=== PATIENT | male | born 1940 | race Caucasian/White ===

== ENCOUNTER 2018-10-07 14:20 | Inpatient (IN) | payer MEDICARE, OTHER ==
[~2018-10-07] VITALS: Ht 175.3 cm; Wt 83.9 kg
--- NOTE | 2018-10-07 14:40 | NUR ---
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 RECEIVED PT DIRECT ADMIT @ 1440 A/OX4, NO SOB OR ACUTE DISTRESS NOTED. 3L O2 VIA NC SPO2 94%. TELE ATTACHED, SINUS RHYTHM HR 71. 1+ EDEMA AND DRY SKIN ON BLE. WOUND CONSULT ORDERED, PICTURES TAKEN. PT. REPORTS BEING ABLE TO WALK "FOR A SHORT AMOUNT OF TIME". URINAL AT BEDSIDE. COMPLAINS OF 9/10 BACK PAIN. NORCO GIVEN. TWO LEFT FA IVs 18G AND 20G. ORDERS RECEIVED AND CARRIED OUT. ALL BELONGINGS ACCOUNTED FOR. BED LOCKED, LOW, SIDE RAILS UP X2, CALL LIGHT WITHIN REACH. PT. ABLE TO MAKE NEEDS KNOWN. WILL CONTINUE TO MONITOR AND ENDORSE TO NOC
[2018-10-07] MEDS ORDERED: LACT1CAP89 PO (14:44)
[2018-10-07] MEDS ORDERED: HYDR-4209 PO (14:44)
[2018-10-07 14:45] VITALS: BP 122/92
[2018-10-07] MEDS ORDERED: DOCU-141 PO (14:53)
[2018-10-07] MEDS ORDERED: GUAI-755 PO (14:53)
[2018-10-07] MEDS ORDERED: ALBU2.5V38 IH (14:53)
[2018-10-07] MEDS ORDERED: BUDE10.22 IH (14:53)
[2018-10-07] MEDS ORDERED: AMLO10TA7 PO (14:53)
[2018-10-07] MEDS ORDERED: TIOT18CA3 IH (14:53)
[2018-10-07] MEDS ORDERED: THIA100V2 PO (14:53)
[2018-10-07] MEDS ORDERED: MULT-213 PO (14:53)
[2018-10-07] MEDS ORDERED: ACET-73 PO (14:53)
[2018-10-07 16:00] VITALS: BP 125/69
[2018-10-07] MEDS ORDERED: IPRATROPIUM NEB FS 0.5 MG/2.5 ML AMPUL.NEB NEB PRN (16:00)
[2018-10-07] MEDS ORDERED: MAGNESIUM HYDROXIDE 30 ML UDC PO PRN (16:00)
[2018-10-07] MEDS ORDERED: ZOLPIDEM TARTRATE 5 MG TABLET PO PRN (16:00)
[2018-10-07] MEDS ORDERED: MAG HYDROX/AL HYDROX/SIMETH 30 ML UDC PO PRN (16:00)
[2018-10-07] MEDS ORDERED: ACETAMINOPHEN 325 MG TABLET PO PRN (16:00)
[2018-10-07] MEDS ORDERED: ONDANSETRON HCL/PF 4 MG/2 ML VIAL IVP PRN (16:00)
[2018-10-07] MEDS ORDERED: ALBUTEROL FS 2.5 MG/0.5 ML VIAL.NEB NEB PRN (16:00)
[2018-10-07] MEDS ORDERED: Z GUARD REMEDY 2 OZ OINT TP PRN (16:00)
[2018-10-07] MEDS: HYDROCODONE/APAP 5/325MG 1 EACH TABLET PO PRN (16:28)
[2018-10-07] MEDS: LEVOFLOXACIN 750 MG /D5W 150ML 750 MG in PREMIX 1 EA IV SCH (17:09)
[2018-10-07] MEDS: DOCUSATE SODIUM 100 MG CAPSULE PO SCH (17:11)
[2018-10-07] MEDS: GUAIFENESIN LA 600 MG TABLET.SA PO SCH (17:11)
[2018-10-07] MEDS: methylPREDNISolone SOD SUCC 40 MG/ML VIAL IV SCH ×2 (18:20→23:35)
--- NOTE | 2018-10-07 19:05 | NUR ---
MS/RN INITIAL NOTES RECEIVED PT IN BED, A/OX3. ON 3L O2 VIA NC, NO SOB NOTED. LFA G20 AND LFA G18 HEPLOCK PATENT, C/D/I. NO C/O PAIN AT THIS TIME.SAFETY MEASURES IN PLACED. CALL LIGHT WITHIN EASY REACH. WILL CONT TO MONITOR
--- NOTE | 2018-10-07 19:27 | NUR ---
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 PT. STABLE CONDITION WITH 3L O2 NC.
[2018-10-07 20:00] VITALS: BP 127/68
[2018-10-08 04:00] VITALS: BP 130/59
[2018-10-08] MEDS: methylPREDNISolone SOD SUCC 40 MG/ML VIAL IV SCH ×3 (05:20→17:35)
[2018-10-08 06:27] LABS: BASOPHILS % (AUTO) 0.1 % (0.0-2.0); HEMATOCRIT 35 % (39-51); HEMOGLOBIN 11.4 g/dL (13.5-17.5); LYMPHOCYTES # (AUTO) 0.7 /CMM (0.8-4.8); LYMPHOCYTES % (AUTO) 7.6 % (20.0-44.0); MEAN CORPUSCULAR HGB CONC 33 g/dl (31.0-36.0); MEAN CORPUSCULAR VOLUME 87 fL (80-96); MONOCYTES # (AUTO) 0.1 /CMM (0.1-1.30); MONOCYTES % (AUTO) 1.3 % (2.0-12.0); NEUTROPHILS # (AUTO) 8.9 /CMM (1.8-8.9); PLATELET COUNT (AUTO) 298 /CMM (150-450); RED BLOOD CELL COUNT(AUTO) 3.97 MIL/uL (4.5-6.0); WHITE BLOOD COUNT (AUTO) 9.8 K/uL (4.3-11.0)
--- NOTE | 2018-10-08 06:43 | NUR ---
RN NOTES PT IN STABLE CONDITION. NO ACUTE CHANGES THROUGHOUT SHIFT. ALL NEEDS ANTICIPATED. SAFETY MEASURES OBSERVED AT ALL TIMES. ENDORSED TO AM SHIFT RN FOR [place]
[2018-10-08 06:59] LABS: CALCIUM, SERUM 9.3 mg/dL (8.5-10.1); CARBON DIOXIDE 31 mmol/L (21-32); CHLORIDE 99 mmol/L (98-107); CREATININE 0.6 mg/dL (0.6-1.3); GLUCOSE 150 mg/dL (74-106); PHOSPHORUS 3.4 mg/dL (2.5-4.9); POTASSIUM 4.6 mmol/L (3.5-5.1); SODIUM SERUM 138 mmol/L (136-145); UREA NITROGEN, BLOOD 16 mg/dL (7-18)
[2018-10-08 07:11] LABS: CHOLESTEROL 201 mg/dL (<200); HDL CHOLESTEROL 62 mg/dL (40-60); LDL 125 mg/dL (0-99); TRIGLYCERIDES 34 mg/dL (30-150)
[2018-10-08 08:00] VITALS: BP_SYST 129; BP_DIAS 64; BP_DIAS 76
[2018-10-08] MEDS: GUAIFENESIN LA 600 MG TABLET.SA PO SCH ×2 (08:28→21:29)
[2018-10-08] MEDS: AMLODIPINE BESYLATE 10 MG TABLET PO SCH (08:28)
[2018-10-08] MEDS: DOCUSATE SODIUM 100 MG CAPSULE PO SCH ×2 (08:29→16:18)
[2018-10-08] MEDS: HYDROCODONE/APAP 5/325MG 1 EACH TABLET PO PRN ×3 (08:31→21:30)
[2018-10-08] MEDS: ALBUTEROL FS 2.5 MG/0.5 ML VIAL.NEB NEB SCH ×2 (15:20→19:09)
[2018-10-08] MEDS: IPRATROPIUM NEB FS 0.5 MG/2.5 ML AMPUL.NEB NEB SCH ×2 (15:20→19:09)
[2018-10-08 16:00] VITALS: BP 135/77
[2018-10-08] MEDS: LEVOFLOXACIN 750 MG /D5W 150ML 750 MG in PREMIX 1 EA IV SCH (16:18)
--- NOTE | 2018-10-08 20:00 | NUR ---
MS RN NOTE PT IN BED AWAKE. A/O X 4, NO SOB NO DISTRESS OR DISCOMFORT NOTED. DENIES PAIN. GETTING B TX PER RT. LFA # 20 G AND LFA #18 G SL INTACT AND PATENT. SIDE RAILS UP X 2 AND CALL LIGHT WITHIN REACH. VSS. CONTINUE TO MONITOR HIM.
--- NOTE | 2018-10-08 21:30 | NUR ---
MS RN NOTE PT C/O LOWER BACK PAIN 11/11. NORCO 1 TAB PO GIVEN. CONTINUE TO MONITOR HIM.
--- NOTE | 2018-10-08 22:30 | NUR ---
MS RN NOTE PAIN SUBSDIED 2/10. CONTINUE TO MONITOR HIM.
[2018-10-09] MEDS: methylPREDNISolone SOD SUCC 40 MG/ML VIAL IV SCH ×5 (00:17→23:31)
[2018-10-09] MEDS: ALBUTEROL FS 2.5 MG/0.5 ML VIAL.NEB NEB SCH ×4 (01:30→19:22)
[2018-10-09] MEDS: IPRATROPIUM NEB FS 0.5 MG/2.5 ML AMPUL.NEB NEB SCH ×4 (01:30→19:22)
[2018-10-09 04:00] VITALS: BP 134/61
--- NOTE | 2018-10-09 06:24 | NUR ---
MS RN NOTE PT IN BED ASLEEP, AROUSABLE. NO SOB, NO DISTRESS OR DISCOMFORT NOTED. PT DINES PAIN. ALL NEEDS ATTENDED. SIDE RAILS UP X 2 AND CALL LIGHT WITHIN REACH. WILL ENDORSE TO DAY SHIFT NURSE FOR CONTINUE TO CARE.
[2018-10-09 06:34] LABS: BASOPHILS % (AUTO) 0.1 % (0.0-2.0); HEMATOCRIT 36 % (39-51); LYMPHOCYTES # (AUTO) 0.8 /CMM (0.8-4.8); LYMPHOCYTES % (AUTO) 8.4 % (20.0-44.0); MEAN CORPUSCULAR HGB CONC 33 g/dl (31.0-36.0); MEAN CORPUSCULAR VOLUME 86 fL (80-96); MONOCYTES # (AUTO) 0.2 /CMM (0.1-1.30); MONOCYTES % (AUTO) 2.3 % (2.0-12.0); NEUTROPHILS # (AUTO) 8.9 /CMM (1.8-8.9); NEUTROPHILS % (AUTO) 89.2 % (43.0-81.0); PLATELET COUNT (AUTO) 344 /CMM (150-450); RED BLOOD CELL COUNT(AUTO) 4.18 MIL/uL (4.5-6.0)
[2018-10-09 06:38] LABS: CALCIUM, SERUM 9.1 mg/dL (8.5-10.1); CARBON DIOXIDE 31 mmol/L (21-32); CHLORIDE 98 mmol/L (98-107); CREATININE 0.7 mg/dL (0.6-1.3); GLUCOSE 155 mg/dL (74-106); MAGNESIUM 1.9 mg/dL (1.8-2.4); PHOSPHORUS 3.5 mg/dL (2.5-4.9); SODIUM SERUM 136 mmol/L (136-145); UREA NITROGEN, BLOOD 21 mg/dL (7-18)
--- NOTE | 2018-10-09 07:30 | NUR ---
ms rn received on bed, awake,alert,oriented x4,not in any form of distress, respirations even and unlabored,no sob noted lungs are clear,abdomen soft,positive bowel sounds,denies pain at this time, will monitor patient's condition.
[2018-10-09 08:00] VITALS: BP 146/74
[2018-10-09] MEDS: HYDROCODONE/APAP 5/325MG 1 EACH TABLET PO PRN ×3 (08:20→21:31)
[2018-10-09] MEDS: GUAIFENESIN LA 600 MG TABLET.SA PO SCH ×2 (08:20→21:27)
[2018-10-09] MEDS: DOCUSATE SODIUM 100 MG CAPSULE PO SCH ×2 (08:20→16:32)
[2018-10-09] MEDS: AMLODIPINE BESYLATE 10 MG TABLET PO SCH (08:22)
[2018-10-09 16:00] VITALS: BP 127/70
[2018-10-09] MEDS: LEVOFLOXACIN 750 MG /D5W 150ML 750 MG in PREMIX 1 EA IV SCH (16:32)
--- NOTE | 2018-10-09 18:41 | NUR ---
RN NOTES PATIENT IN BED AWAKE ALERT AND ABLE TO MAKE NEEDS KNOWN. RESPIRATION EVEN AND UNLABORED. SKIN IS DRY WARM TO TOUCH. NO ACUTE DISTRESS OR CARDIAC DISTRESS AT THIS TIME. CONTINUES ON O2 THERAPY. IV ACCESS ON LFA INTACT AND PATENT. FLUSHING WELL. ALL NEEDS ANTICIPATED. KEPT CLEAN AND DRY. CALL LIGHT WITHIN REACH. SAFETY MEASURES OBSERVED. BED LOCKED AND IN LOW POSITION. ENDORSED TO PM NURSE FOR [place].
--- NOTE | 2018-10-09 19:45 | NUR ---
RN OPENING NOTES PT RECEIVED AWAKE, HOB ELEVATED. ON 2L O2 VIA NC, BREATHING EVEN AND UNLABORED. AT THIS TIME. IN NO ACUTE DISTRESS. NO SOB OR PAIN. IV TO LFA PATENT AND INTACT. NO NEEDS EXPRESSED AT THIS TIME. BED IN LOW/LOCKED POSITION WITH CALL LIGHT IN REACH. BILATERAL UPPER SIDE RAILS IN PLACE. WILL CONTINUE TO MONITOR
[2018-10-09 20:00] VITALS: BP_SYST 138; BP_SYST 139; BP_DIAS 74; BP_DIAS 78
--- NOTE | 2018-10-09 23:14 | NUR ---
RT NOTE PT DOES NOT WANT TO BE WOKEN UP FOR TX'S IF HE IS ASLEEP. RN AWARE.
[2018-10-10] MEDS: IPRATROPIUM NEB FS 0.5 MG/2.5 ML AMPUL.NEB NEB SCH ×3 (00:49→15:15)
[2018-10-10] MEDS: ALBUTEROL FS 2.5 MG/0.5 ML VIAL.NEB NEB SCH ×3 (00:49→15:15)
[2018-10-10 04:30] VITALS: BP 136/62
[2018-10-10] MEDS: methylPREDNISolone SOD SUCC 40 MG/ML VIAL IV SCH ×2 (06:23→11:52)
--- NOTE | 2018-10-10 07:00 | NUR ---
RN AM SHIFT NOTE PATIENT IN BED, SAFETY PRECAUTIONS IN PLACE, SIDE RAIL UP CALL LIGHT WITHIN REACH. MITA IS ALERT AND ORINTED X4 AND AWAKE. NO COMPLAINT SO SOB OR RESPIRATORY DISTRESS AT THIS TIME. NO COMPLAINT OF PAIN. PATIENT STATES HE WANTS TO GO HOME AT THIS TIME AND IS REFUSING AM LABS. IV PATENT AND INTACT. AWAITING ORDERS FOR POSSIBLE D/C AT THIS TIME.
--- NOTE | 2018-10-10 07:06 | NUR ---
MS/RN CLOSING NOTES PT AWAKE, HOB ELEVATED. WATCHING TV. ON 2L O2 VIA NC, BREATHING EVEN AND UNLABORED. DENIES SOB AND PAIN AT THIS TIME. SLEPT WELL DURING SHIFT. IV TO LFA PATENT AND INTACT. ALL NEEDS MET. REFUSED AM LABS, DESPITE EDUCATION X3. NO SIGNIFICANT CHANGES OVERNIGHT. BED IN LOW/LOCKED POSITION WITH CALL LIGHT IN REACH, BILATERAL UPPER SIDE RAILS IN PLACE. WILL ENDORSE TO DAY SHIFT RN [place].
[2018-10-10 08:00] VITALS: BP 125/80
[2018-10-10] MEDS: AMLODIPINE BESYLATE 10 MG TABLET PO SCH (08:08)
[2018-10-10] MEDS: GUAIFENESIN LA 600 MG TABLET.SA PO SCH (08:08)
[2018-10-10] MEDS: DOCUSATE SODIUM 100 MG CAPSULE PO SCH (08:08)
[2018-10-10] MEDS: HYDROCODONE/APAP 5/325MG 1 EACH TABLET PO PRN (08:11)
[2018-10-10 08:30] VITALS: BP 135/80
[2018-10-10] MEDS ORDERED: methylPREDNISolone SOD SUCC IV (13:11)
[2018-10-10] MEDS ORDERED: IPRA0.2S9 NEB (13:11)
[2018-10-10] MEDS ORDERED: LEVO750T21 PO (13:11)
[2018-10-10] MEDS ORDERED: LEVOFLOXACIN (750 MG) 750 MG TABLET PO SCH (17:00)
--- NOTE | 2018-10-10 18:09 | NUR ---
OUTBOUND SALES ADVISOR NOTE PATIENT STABLE FOR DISCHARGE PER MD ORDER. PATIENTS BELONGINGS GIVEN BACK TO HIM FROM [facility]. PATIENT COMPLAINTS OF NO PAIN OR DISCOMFORT AT THIS TIME. REPORT GIVEN TO NURSING FACILITY PRIOR TO TRANSPORTATION. PAPERWORK GIVEN TO PATIENT PRIOR TO DISCHARGE, REFUSAL OF VACCINATIONS NO WOUNDS TO DOCUMENT, IV D/C UPON TRANSFER.
[2018-10-10] MEDS ORDERED: methylPREDNISolone SOD SUCC 40 MG/ML VIAL IV SCH (21:00)
== END 2018-10-10 17:38 | DRG 191 ==
LOC: TELE1 14:20 → MEDSG1 22:39
DX: J44.1 Chronic obstructive pulmonary disease with (acute) exacerbation (principal); J90 Pleural effusion, not elsewhere classified; I10 Essential (primary) hypertension; Z87.891 Personal history of nicotine dependence
CPT/HCPCS: 36415; 70220-TC; 71045-TC; 80048-TC; 80061-TC; 83735-TC; 84100-TC; 84443-TC; 85025-TC; 87070-TC; 87081-TC; 94799-TC; 97110-TC; 97116-TC; 97530-TC; A4216; G0378; J1956; J2920; J7030; J7042